=== PATIENT | male | born 1955 | race Caucasian/White ===

== ENCOUNTER → 2024-06-17 08:57 | Outpatient (CLI) | payer OTHER, SELFPAY ==
[2024-06-17 10:11] LABS: Add Manual Diff / Slide Review NO; Basophils Absolute Auto 100 /uL (0-100); Basophils Percent Auto 1.1 % (0-2); Eosinophils Absolute Auto 200 /uL (0-450); Eosinophils Percent Auto 2.6 % (2-4); Hematocrit 45.2 % (41-53); Hemoglobin 15.6 g/dL (13.5-17.5); Lymphocytes Absolute Auto 2000 /uL (1100-4500); Mean Corpuscular HGB Conc 34.6 % (30-36); Mean Corpuscular Hemoglobin 31.5 PG (26-34); Mean Corpuscular Volume 90.9 fL (80-100); Monocytes Absolute Auto 600 /uL (0-900); Monocytes Percent Auto 7.4 % (3-14); Neutrophils Absolute Auto 5100 /uL (1500-7000); Neutrophils Percent Auto 63.9 % (50-75); Platelet Count 273 X10^3/uL (150-400); Red Blood Cell Count 4.98 X10^6/uL (4.5-5.9); Red Cell Distribution Width 13.1 % (11.6-14.8)
[2024-06-17 11:51] LABS: Alanine Aminotransferase 21 IU/L (<50); Albumin 4.2 g/dL (3.5-5.0); Albumin Globulin Ratio 1.6 (1.0-2.8); Alkaline Phosphatase 65 U/L (38-126); Aspartate Aminotransferase 22 IU/L (17-59); BUN Creatinine Ratio 17.2 (6-22); Blood Urea Nitrogen 16 mg/dL (9-20); Calcium 9.5 mg/dL (8.4-10.2); Carbon Dioxide 23 mmol/L (22-32); Chloride 108 mmol/L (98-107); Cholesterol 230 mg/dL (140-199); Estimated Glomerular Filt Rate > 60 mL/min (>60); Globulin 2.7 g/dL (1.7-4.1); Glucose 98 mg/dL (80-110); HDL Cholesterol 45 mg/dL (40-60); HEMOLYSIS < 15 (0-50); LDL Cholesterol Calculated 164 mg/dL (<100); Potassium 4.2 mmol/L (3.4-5.1); Sodium 138 mmol/L (137-145); Total Protein 6.9 g/dL (6.3-8.2); Triglycerides 107 mg/dL (35-150)
[2024-06-17 12:21] LABS: Prostate Specific Antigen Scrn 4.76 ng/mL (0.1-4.0)
== END ==
PROVIDERS: PCP Family Medicine; Referring Provider Family Medicine; Visit Provider Family Medicine
DX: Z13.9 Encounter for screening, unspecified (principal); Z12.5 Encounter for screening for malignant neoplasm of prostate; Z80.42 Family history of malignant neoplasm of prostate
CPT/HCPCS: 36415; 80053; 80061; 85025; G0103

== ENCOUNTER → 2024-07-20 15:56 | Outpatient (CLI) | payer OTHER, SELFPAY ==
--- NOTE | 2024-07-20 15:57 | DI.ECHO.S_ITS ---
[facility] : : [address] : : [place] : : [id number] : : Phone: [phone] Echocardiogram Report + + :Name: MARY GUTIERREZ Study Date: 07/20/2024 Height: 76 in : :[facility] ReadingLocation: Weight: 250 lb : : Gender: Male BSA: 2.4 m2 : :: 1955 Age: 69 yrs BP: 203/107 mmHg: :Reason For Study: HEART MURMUR : :Ordering Physician: JOE, : :SHELIA Carney Performed By: Daljit Keller : :Referring: SHELIA DIAZ : + + Interpretation Summary 1) Mildly increased left ventricular thickness (concentric) with normal size, normal wall motion, and normal systolic function (EF 55-60%). 2) Upper normal right ventricular size with normal function. 3) There is mild aortic stenosis (valve area 1.6cm2, mean gradient 26mmHg, severity ratio 0.36). 4) There is mild to moderate aortic regurgitation. 5) The ascending aorta is mild-moderately enlarged at 4.5cm. 6) Hypertension present during the study (BP 203/107mmHg). 7) No prior Echo available for comparison. Procedure: A two-dimensional transthoracic echocardiogram with color flow and Doppler was performed. The study quality was technically adequate. There is no prior echocardiogram noted for this patient. The heart rate ranged between 56-73 bpm during the study. Left Ventricle: The left ventricle is normal in size. Left ventricular wall thickness is mildly increased. The ejection fraction is estimated to be 55- 60%. Left ventricular systolic function appears normal without focal wall motion abnormalities. Right Ventricle: The right ventricle is at the upper limits of normal in size. The right ventricular systolic function is normal. Atria: The left atrium is moderately dilated. Right atrial size is normal. The interatrial septum grossly appears intact with no obvious evidence for an atrial septal defect. Mitral Valve: The mitral valve is normal. There is no mitral valve stenosis. There is mild mitral regurgitation. Aortic Valve: The aortic valve is moderately calcified. There is mild aortic stenosis. The peak aortic velocity is 3.17 m/sec. The aortic valve mean gradient is 26.2 mmHg. The calculated aortic valve area is 1.6 cm2. There is mild to moderate aortic regurgitation. Tricuspid Valve: The tricuspid valve is normal. There is no tricuspid stenosis. There is mild tricuspid regurgitation. Pulmonary artery pressures cannot be estimated because of the lack of a measurable TR jet velocity. Pulmonic Valve: The pulmonic valve is not well visualized. There is no pulmonic valvular stenosis. There is no pulmonic valvular regurgitation. Great Vessels: The aortic root is mildly dilated. The ascending aorta is mild-moderately enlarged. The inferior vena cava was not visualized. Pericardium/ Pleura There is no pericardial effusion. There is no pleural effusion. MMode/2D Measurements & Calculations LVIDd: 5.8 cm LVOT diam: 2.4 cm LVIDs: 3.7 cm Ao root diam: 4.0 cm FS: 36.9 % asc Aorta Diam: 4.5 cm IVSd: 1.3 cm LVPWd: 1.3 cm LV strauss. diameter/BSA (cm/m^2): 2.4 LV sys. diameter/BSA (cm/m^2): 1.5 LA A2 area: 23.7 cm2 RA long axis: 5.5 cm LA A4 area: 24.9 cm2 RA area: 17.9 cm2 LA length (vol): 5.9 cm RA vol: 49.5 ml LA vol: 84.4 ml RA : 20.3 ml/m2 LA vol index: 34.6 ml/m2 RVD1 (basal): 4.0 cm RVD2 (mid): 3.6 cm TAPSE: 2.7 cm Doppler Measurements & Calculations Ao V2 max: 317.1 cm/sec LVOT Max Isak: 107.7 cm/sec Ao V2 mean: 245.0 cm/sec LV V1 max P.6 mmHg Ao max P.2 mmHg LV V1 VTI: 26.8 cm Ao mean P.2 mmHg GEOVANY(I,D): 1.6 cm2 Ao V2 VTI: 74.6 cm GEOVANY(V,D): 1.5 cm2 sev ratio: 0.36 GEOVANY indexed to BSA (cm^2/m^2): 0.65 MV E max isak: 48.5 cm/sec TR max isak: 267.6 cm/sec MV A max isak: 72.1 cm/sec TR max P.6 mmHg MV E/A: 0.67 PA V2 max: 120.1 cm/sec Med Peak E' Isak: 4.1 cm/sec PA V2 mean: 80.8 cm/sec E/E' med: 11.9 PA mean P.9 mmHg Lat Peak E' Isak: 6.5 cm/sec PA pr(Accel): 37.9 mmHg E/E' lat: 7.4 E/e' average: 9.7 MV dec time: 0.25 sec SV(OT): 118.6 ml Reading Physician:12:10 PM
== END ==
LOC: ECHO 15:56
PROVIDERS: PCP Family Medicine; Referring Provider Family Medicine; Visit Provider Family Medicine
DX: I08.3 Combined rheumatic disorders of mitral, aortic and tricuspid valves (principal); R01.1 Cardiac murmur, unspecified; I77.810 Thoracic aortic ectasia; I77.89 Other specified disorders of arteries and arterioles
CPT/HCPCS: 93306

== ENCOUNTER 2024-10-14 09:31 | Day surgery (SDC) | payer OTHER, SELFPAY ==
--- NOTE | 2024-10-14 | PATH_ITS ---
[facility] Accession Number: [id number] No. of containers..02 Tissue . 01 Material submitted: . PART A: colon - TRANSVERSE COLON POLYPS X2 PART B: rectum - RECTAL POLYP . 01 Diagnosis: A. TRANSVERSE COLON, POLYPECTOMY (X2): Inflammatory polyp and separate fragment of colonic mucosa with no significant diagnostic abnormality. Negative for active, chronic, or microscopic colitis. Negative for dysplasia or malignancy. Additional deeper levels were examined. - B. RECTUM, POLYPECTOMY: Tubular adenoma. [facility] 10/19/2024 1121 Local . 01 Electronically signed: . Maryann Tsang MD, Pathologist NPI- [id number] . 01 Gross description: . Part A: TRANSVERSE COLON POLYPS X2: Received in formalin are 2 fragment(s) of zhang, soft tissue measuring 0.5 x 0.5 x 0.5 cm to 1.0 x 0.6 x 0.4 cm submitted entirely in 1 cassette(s) Part B: RECTAL POLYP: Received in formalin are 2 fragment(s) of zhang, soft tissue measuring 0.3 x 0.3 x 0.3 cm to 0.6 x 0.5 x 0.4 cm submitted entirely in 1 cassette(s) /ZULEYMA 10/15/20241953 Local . 01 Pathologist provided ICD-10: Z12.11 . 01 CPT . 061126, 316855 Specimen Comment: A courtesy copy of this report has been sent to [phone] Performed at: [address] [address], [place], [place] [id number] MD Jose Ramon Pemberton MD Phone: [phone]
[2024-10-14 09:44] VITALS: BP 174/98; PULSE 86; RESP 16; TEMP 36.5; O2SAT 96
--- NOTE | 2024-10-14 09:51 | PM.HP.1 ---
History of Present Illness History of Present Illness Date Patient Seen: 10/14/24 Time Patient Seen: 09:51 Chief complaint: SDC Narrative: Herson is a 69-year-old man here for colonoscopy. He has had 1 over 10 years ago and may have had a small polyp removed. No family history of colon cancer. [facility] Medical History (Updated 10/14/24 @ 09:51 by Camden Walker MD) Fractures (~1972) Hepatitis (~1975) Hearing loss Gastric ulcer Onychomycosis LOKI (obstructive sleep apnea) (~2014) Heart murmur Family history of prostate cancer Psoriasis (~2013) Arrhythmia (~2017) Surgical History (Updated 06/28/24 @ 20:44 by Mary Kate Chandra) Anesthesia History of ankle surgery (~1972) Family History (Updated 06/28/24 @ 20:46 by Mary Kate Chandra) Father Cancer Mother Cancer Brother Atrial fibrillation Brother Atrial fibrillation Sister Cancer Meds Home Medications and Allergies Home Medications Medication Instructions Recorded Confirmed Type atorvastatin 20 mg tablet 20 mg PO BEDTIME #30 tabs 09/13/24 10/14/24 Rx losartan 25 mg tablet 25 mg PO DAILY #30 tabs 09/13/24 10/14/24 Rx Allergies Allergy/AdvReac Type Severity Reaction Status Date / Time No Known Drug Allergies Allergy Verified 10/14/24 09:42 Exam Const General: No acute distress Assessment & Plan Assessment and plan (1) Colon cancer screening: Status: Acute Plan Colonoscopy Time-Based Coding :: [TOTAL MINUTES] spent with patient and on the chart (including review of chart, obtaining history, exam, reviewing outside data, placing orders, documenting exam and treatment plan, and counseling patient) on [DATE].
--- NOTE | 2024-10-14 10:48 | PM.OP.COLON ---
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 The patient was connected to monitoring devices. A time-out was performed. Sedation was administered. Once the patient was adequately sedated, a digital rectal exam was performed and was normal. The scope was then inserted and advanced to the proximal transverse colon. The scope could not be advanced all the way to the cecum due to the length of the colon. We attempted manual abdominal pressure and repositioning well as a scope stiffener no success. The scope was gradually withdrawn. There were 2 5 mm polyps in the transverse colon removed with a cold snare and sent together. There was a 5 mm polyp in the mid rectum removed with a cold snare. The scope was retroflexed in the rectum. No other abnormalities were seen. The scope was straightened and removed. The patient was awakened and brought to recovery. Scope withdrawal time: Not applicable Sedation time: 45 minutes EBL: 2 mL Findings: 2 5 mm transverse colon polyps and 1 5 mm rectal polyp Post-procedure Disposition: PACU
[2024-10-14 10:56] VITALS: BP 100/58; PULSE 74; RESP 14; TEMP 36.6; O2SAT 91
[2024-10-14 11:01] VITALS: BP 98/56; PULSE 73; RESP 11; O2SAT 93
[2024-10-14 11:09] VITALS: BP 100/65; PULSE 73; RESP 12; TEMP 36.3; O2SAT 95
== END 2024-10-14 11:22 | disposition home or self-care (01) ==
PROVIDERS: PCP Family Medicine; Referring Provider Surgery; Visit Provider Surgery
PROC: 0DJD8ZZ Inspection of Lower Intestinal Tract, Via Natural or Artificial Opening Endoscopic (ICD-10-PCS; CPT 45378; principal; 2024-10-14 10:30)
DX: Z12.11 Encounter for screening for malignant neoplasm of colon (principal); K51.40 Inflammatory polyps of colon without complications; D12.8 Benign neoplasm of rectum
CPT/HCPCS: 45385; J2704

== ENCOUNTER → 2024-10-29 10:37 | Outpatient (CLI) | payer OTHER, SELFPAY ==
--- NOTE | 2024-10-29 10:39 | DI.RAD.S_ITS ---
PROCEDURE: FL BARIUM ENEMA INDICATIONS: incomplete colonoscopy, malignant neoplasm of colon COMPARISON: None. FINDINGS: KUB: Preprocedural club waiter/waitress film demonstrates a normal bowel gas pattern. No suspicious abdominal calcifications. Visualized solid organ contours appear normal in size. No suspicious bony lesions. Colon: There is adequate opacification of the entire colon. No strictures or extrinsic mass effects are identified. No colonic fistulae or perforations. Colon caliber appears normal. Three small approximately 2-3 mm mucosal ulcerations are noted at the splenic flexure. There is a diverticulum at the proximal transverse colon and several diverticula along the descending and sigmoid colon. There may be a small polyp measuring approximately 6 mm at the distal ascending colon. IMPRESSION: 1. One small 6 mm polyp is noted in the distal ascending colon. 2. Three small ulcerations in the splenic flexure. 3. Diverticulosis involving the transverse and especially the sigmoid colon. Dictated by: Jose Ramon Rodarte M.D. on 10/29/2024 at 14:12 Approved by: Jose Ramon Rodarte M.D. on 10/29/2024 at 14:41
== END ==
PROVIDERS: PCP Family Medicine; Referring Provider Surgery; Visit Provider Surgery
DX: Z12.11 Encounter for screening for malignant neoplasm of colon (principal); K57.30 Diverticulosis of large intestine without perforation or abscess without bleeding; K63.3 Ulcer of intestine; K63.5 Polyp of colon
CPT/HCPCS: 74270

== ENCOUNTER → 2024-12-22 09:33 | Outpatient (CLI) | payer MEDICARE, OTHER, SELFPAY | LOC: CAR 09:34 | PROVIDERS: PCP Family Medicine; Referring Provider Family Medicine; Visit Provider Family Medicine | DX: R01.1 Cardiac murmur, unspecified (principal); I49.9 Cardiac arrhythmia, unspecified | CPT/HCPCS: 93246; 93798 ==

== ENCOUNTER → 2025-03-07 13:52 | Outpatient (CLI) | payer MEDICARE, OTHER, SELFPAY ==
[2025-03-07 15:12] LABS: Prostate Specific Antigen 2.57 ng/mL (0.10-4.00)
== END ==
LOC: LAB 13:52
PROVIDERS: PCP Family Medicine; Referring Provider Urology; Visit Provider Urology
DX: R97.20 Elevated prostate specific antigen [PSA] (principal)
CPT/HCPCS: 36415; 84153

== ENCOUNTER 2025-03-16 12:38 | Emergency (ER) | payer MEDICARE, OTHER, SELFPAY ==
[2025-03-16] VITALS (7 sets, daily range): BP systolic 128–174; BP diastolic 77–119; PULSE 68–74; RESP 12–20; TEMP 36.6; O2SAT 92–100; BMI 32.2
--- NOTE | 2025-03-16 12:45 | DI.RAD.S_ITS ---
PROCEDURE: XR CHEST 1V INDICATIONS: chest pain TECHNIQUE: One view of the chest was acquired. COMPARISON: None. FINDINGS: Surgical changes and devices: None. Lungs and pleura: Ill-defined airspace opacity in left infrahilar region is seen concerning for left lower lobe infiltrate. Right lung is clear. No pleural effusions or pneumothorax. Mediastinum: Mediastinal contours appear normal. Heart size is enlarged. Bones and chest wall: No suspicious bony lesions. Overlying soft tissues appear unremarkable. IMPRESSION: Suggestion of left lower lobe infiltrate. Clinical correlation and follow-up is recommended. No pleural effusion or pneumothorax. Dictated by: Iker Del Angel M.D. on 03/16/2025 at 13:42 Approved by: Iker Del Angel M.D. on 03/16/2025 at 13:43
--- NOTE | 2025-03-16 12:52 | EKG_ITS ---
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
[2025-03-16] MEDS: ASPIRIN 81 MG CHEW TAB 324 MG PO (12:56)
[2025-03-16 13:00] LABS: Add Manual Diff / Slide Review NO; Basophils Absolute Auto 100 /uL (0-100); Eosinophils Absolute Auto 200 /uL (0-450); Eosinophils Percent Auto 1.6 % (2-4); Hematocrit 46.5 % (41-53); Hemoglobin 15.6 g/dL (13.5-17.5); Lymphocytes Absolute Auto 2100 /uL (1100-4500); Lymphocytes Percent Auto 17.7 % (25-40); Mean Corpuscular HGB Conc 33.5 % (30-36); Mean Corpuscular Hemoglobin 30.4 PG (26-34); Mean Corpuscular Volume 90.6 fL (80-100); Monocytes Absolute Auto 1400 /uL (0-900); Monocytes Percent Auto 11.5 % (3-14); Neutrophils Absolute Auto 8200 /uL (1500-7000); Neutrophils Percent Auto 68.2 % (50-75); Platelet Count 261 X10^3/uL (150-400); Red Blood Cell Count 5.13 X10^6/uL (4.5-5.9); Red Cell Distribution Width 13.1 % (11.6-14.8)
[2025-03-16 13:06] LABS: INR 1.1 (0.9-1.3); Prothrombin Time 12.3 SECONDS (9.4-12.5)
[2025-03-16 13:08] LABS: PTT Partial Thromboplastin Tim 38 SECONDS (25.1-36.5)
[2025-03-16 13:11] LABS: Alanine Aminotransferase 27 IU/L (<50); Albumin 4.3 g/dL (3.5-5.0); Albumin Globulin Ratio 1.3 (1.0-2.8); Alkaline Phosphatase 63 U/L (38-126); Aspartate Aminotransferase 27 IU/L (17-59); BUN Creatinine Ratio 16.3 (6-22); Bilirubin Total 1.5 mg/dL (0.2-1.3); Blood Urea Nitrogen 17 mg/dL (9-20); Calcium 9.3 mg/dL (8.4-10.2); Carbon Dioxide 24 mmol/L (22-32); Chloride 104 mmol/L (98-107); Creatine Kinase 57 U/L (55-170); Estimated Glomerular Filt Rate > 60 mL/min (>60); Globulin 3.2 g/dL (1.7-4.1); Glucose 103 mg/dL (70-99); HEMOLYSIS < 15 (0-50); Lipase 62 U/L (23-300); Potassium 3.8 mmol/L (3.4-5.1); Sodium 138 mmol/L (137-145); Total Protein 7.5 g/dL (6.3-8.2)
[2025-03-16 13:22] LABS: NT-proBNP (BNP-Adult 18+) 798 pg/mL (<125); Troponin I 0.032 ng/mL (0.01-0.034)
--- NOTE | 2025-03-16 13:29 | ED.CHESTPAIN ---
HPI - Chest Pain General Chief Complaint: Chest Pain Stated Complaint: Check for chest pressure sent from Dr. Richmond Time Seen by Provider: 03/16/25 12:52 Source: patient Mode of arrival: Ambulatory History of Present Illness HPI narrative: Patient is a male with a recent history of stent placement (four stents placed on Friday at [facility]) who presents with mild chest pressure localized to the upper left side, rated as 3/10 in intensity. The chest pressure began last evening and has remained stable since onset. The patient reports no radiation of pain to the jaw, back, or other areas, and no positional changes affecting the symptoms. He denies any swelling in the legs, new medications, or complications during the stent procedure. He has been recovering from a cold and suspects it may be bronchial in nature. Pertinent ROS: Denies shortness of breath, wheezing, cough, fever, chills, nausea, vomiting, or leg swelling. Reports mild chest pressure. Past Medical History: Recent stent placement, hyperlipidemia. Denies hypertension or diabetes. Medications: Aspirin, cholesterol medication, Plavix. Surgical History: Stent placement (planned procedure). Allergies: None mentioned. Related Data Home Medications Medication Instructions Recorded Confirmed aspirin 81 mg tablet,delayed 81 mg PO DAILY 03/16/25 03/16/25 release (Adult Low Dose Aspirin) clopidogrel 75 mg tablet 75 mg PO DAILY 03/16/25 03/16/25 Previous Rx's Medication Instructions Recorded losartan 25 mg tablet 25 mg PO DAILY #90 tabs 12/30/24 atorvastatin 20 mg tablet 20 mg PO BEDTIME #90 tabs 01/31/25 Allergies Allergy/AdvReac Type Severity Reaction Status Date / Time No Known Drug Allergies Allergy Verified 12/16/24 08:04 Review of Systems Review of Systems Narrative: Constitutional: recovering from a cold. Eyes: no visual changes. Ears/Nose/Throat: no nasal congestion or drainage. Respiratory: suspects bronchial symptoms related to recent cold, denies wheezing or shortness of breath. Cardiac: chest pressure rated 3/10, denies radiation of pain, denies positional changes, denies leg swelling. Gastrointestinal: umbilical hernia noted, longstanding, no associated symptoms. Skin: no laceration, no rash. Musculoskeletal: no extremity pain. Neurologic: no confusion. Psychiatric: no mood change. Other: other. Patient History Medical History Fractures (~1972) Hepatitis (~1975) Hearing loss Gastric ulcer Onychomycosis LOKI (obstructive sleep apnea) (~2014) Heart murmur Family history of prostate cancer Psoriasis (~2013) Arrhythmia (~2017) Surgical History Anesthesia History of ankle surgery (~1972) Family History Father Cancer Mother Cancer Brother Atrial fibrillation Brother Atrial fibrillation Sister Cancer Social History Smoking Status: Never smoker alcohol intake: current Smoking Status: Never smoker alcohol intake frequency: a few times a week Exam Narrative Exam Narrative: General: Well appearing, well nourished, alert, no acute distress. Skin: Good turgor, no rash, unusual bruising or prominent lesions. Head: Normocephalic, atraumatic. HEENT: Conjunctiva clear, EOM intact, PERRL, mucous membranes moist. Neck: Supple, normal ROM. Heart: Regular rate and rhythm, no murmur or gallop or rubs. Bilateral upper extremities warm and well-perfused with 2+ radial pulses. Lungs: Clear to auscultation bilaterally, no wheezing, rhonchi, or expiratory wheeze. Abdomen: Soft, non-distended, umbilical hernia noted without erythema or signs of poor blood flow. Back: Spine normal without deformity or tenderness, no CVA tenderness. Extremities: No deformities, no significant edema in bilateral lower extremities, peripheral pulses intact. Neurologic: CN 2-12 normal. Normal sensation and motor exam. Psychiatric: Oriented X3, normal mood and affect. Initial Vital Signs Initial Vital Signs: Vital Signs Temperature 98 F 03/16/25 12:40 Pulse Rate 73 03/16/25 12:40 Respiratory Rate 20 03/16/25 12:40 Blood Pressure 145/119 H 03/16/25 12:40 Pulse Oximetry 100 03/16/25 12:40 Oxygen Delivery Method Room Air 03/16/25 12:40 Course Orders Ordered: ED Orders 03/16/25 12:45 XR chest 1V Stat EKG-12 Lead Stat 03/16/25 12:53 Complete Blood Count AUTO DIFF Stat Comprehensive Metabolic Panel Stat Lipase Stat Magnesium Stat NT-proBNP (BNP-Adult 18+) Stat PTT Partial Thromboplastin Sean Stat Prothrombin Time INR Stat Troponin & CK Cardiac Panel Stat 03/16/25 13:00 Respiratory Panel (Film Array) Stat 03/16/25 15:16 Trop I [Troponin I] Stat Discontinued Medications Aspirin (Aspirin 81 Mg Chew Tab) 324 mg PO NOW ONE Stop: 03/16/25 12:46 Last Admin: 03/16/25 12:56 Dose: 324 mg Documented By: MASON Nitroglycerin (Nitroglycerin 0.4 Mg Sl Tab) 0.4 mg SL NOW ONE Stop: 03/16/25 16:42 Last Admin: 03/16/25 16:44 Dose: 0.4 mg Vital Signs Vital signs: Vital Signs - 8 hr 03/16/25 12:40 03/16/25 13:25 03/16/25 14:28 Temperature 98 F Pulse Rate 73 70 68 Respiratory Rate 20 12 15 Blood Pressure 145/119 H 174/92 H 150/78 H Pulse Oximetry 100 92 93 Oxygen Delivery Method Room Air Room Air 03/16/25 15:13 03/16/25 16:38 03/16/25 16:44 Temperature Pulse Rate 70 72 73 Respiratory Rate 16 16 Blood Pressure 129/79 144/78 H 143/79 H Pulse Oximetry 93 95 Oxygen Delivery Method MDM - Chest Pain Lab Data Lab results narrative: I reviewed patient's lab work which shows mild elevation in white count at 12 but otherwise no signs of significant anemia or thrombocytopenia electrolytes reassuring with no significant abnormalities -initial troponin 0.032, BNP is not significantly elevated we will do repeat on these given patient's high-risk nature of symptoms and medical history Patient's lipase is not significantly elevated and LFTs within normal limits 03/16/25 12:53 03/16/25 12:53 Labs: Lab Results 03/16/25 03/16/25 03/16/25 Range/Units 12:53 13:00 15:16 WBC 12.0 H (4.5-11.0) X10^3/uL RBC 5.13 (4.5-5.9) X10^6/uL Hgb 15.6 (13.5-17.5) g/dL Hct 46.5 (41-53) % MCV 90.6 (80-100) fL MCH 30.4 (26-34) PG MCHC 33.5 (30-36) % RDW 13.1 (11.6-14.8) % Plt Count 261 (150-400) X10^3/uL Neut % (Auto) 68.2 (50-75) % Lymph % (Auto) 17.7 L (25-40) % Wolfe % (Auto) 11.5 (3-14) % Eos % (Auto) 1.6 L (2-4) % Baso % (Auto) 1.0 (0-2) % Neut # (Auto) 8200 H (1185-7559) /uL Lymph # (Auto) 2100 (8390-4412) /uL Wolfe # (Auto) 1400 H (0-900) /uL Eos # (Auto) 200 (0-450) /uL Baso # (Auto) 100 (0-100) /uL PT 12.3 (9.4-12.5) SECONDS INR 1.1 (0.9-1.3) APTT 38 H (25.1-36.5) SECONDS Sodium 138 (137-145) mmol/L Potassium 3.8 (3.4-5.1) mmol/L Chloride 104 (98-107) mmol/L Carbon Dioxide 24 (22-32) mmol/L BUN 17 (9-20) mg/dL Creatinine 1.04 (0.66-1.25) mg/dL Estimated GFR > 60 (>60) mL/min BUN/Creatinine Ratio 16.3 (6-22) Glucose 103 H (70-99) mg/dL Calcium 9.3 (8.4-10.2) mg/dL Magnesium 2.0 (1.6-2.3) mg/dL Total Bilirubin 1.5 H (0.2-1.3) mg/dL AST 27 (17-59) IU/L ALT 27 (<50) IU/L Alkaline Phosphatase 63 (38-126) U/L Total Creatine Kinase 57 (55-170) U/L Troponin I 0.032 0.032 (0.01-0.034) ng/mL NT-Pro-B Natriuret Pep 798 H (<125) pg/mL Total Protein 7.5 (6.3-8.2) g/dL Albumin 4.3 (3.5-5.0) g/dL Globulin 3.2 (1.7-4.1) g/dL Albumin/Globulin Ratio 1.3 (1.0-2.8) Lipase 62 (23-300) U/L Chlamy pneumoniae PCR Not detected (Not Detect) Adenovirus (PCR) Not detected (Not Detect) B. pertussis DNA (PCR) Not detected (Not Detect) B.parapertussis DNA PCR Not detected (Not Detecte) Coronavirus OC43 (PCR) Not detected (Not Detect) Coronavirus HKU1 (PCR) Not detected (Not Detect) Coronavirus 229E (PCR) Not detected (Not Detect) SARS-CoV-2 (PCR) Not detected (Not Detecte) Coronavirus NL63 (PCR) Not detected (Not Detect) Human Metapneumovir PCR Not detected (Not Detect) Influenza Type A (PCR) Not detected (Not Detect) Influenza Type B (PCR) Not detected (Not Detect) M. pneumoniae (PCR) Not detected (Not Detect) Parainfluenza 1 (PCR) Not detected (Not Detect) Parainfluenza 2 (PCR) Not detected (Not Detect) Parainfluenza 3 (PCR) Not detected (Not Detect) Parainfluenza 4 (PCR) Not detected (Not Detect) RSV (PCR) Not detected (Not Detect) Entero/Rhino (PCR) Detected H (Not Detect) ECG Data Attestation: I personally reviewed and interpreted this ECG as follows: Interpretation: I reviewed patient's EKG that shows normal sinus rhythm with a rate of 74 CO interval is 202, QTC 408 patient has no significant ST segment elevations meeting STEMI criteria patient has ST segment laterally very mildly, waiting on records from outside hospital for comparison to previous [facility] Narrative Medical decision making narrative: INITIAL EVALUATION AND PLAN: - Differential diagnosis includes possible complications from recent stent placement, ongoing ischemia, or other cardiac issues. - Cardiac workup: - Chest X-ray. - EKG. - Troponin levels. - Cardiac BNP. - [id number] cardiac ultrasound to assess for fluid collection or other abnormalities. - Monitor for worsening chest pain or shortness of breath. - Consider contacting [facility] for further evaluation or follow-up based on findings. Differential diagnosis includes but is not limited to: complications from stent placement, ongoing ischemia, CO, ACS, coronary artery dissection, bronchial symptoms, or other cardiac abnormalities. -records were obtained from [facility] where his stents were placed fortunately no significant abnormalities from his previous EKG to today's EKG. Also reviewed patient's catheter report including multiple stent placement -consultation was obtained from Dr. Heller of this scheduled cardiology team who reviewed the patient's most recent imaging, cath report and EKGs, we discussed inpatient for outpatient treatment of his symptoms, he states that given reassuring EKG only mild symptoms and delta troponin that has been negative 2 times and consistent in onset of his chest pain greater than 12 hours ago unlikely to have new acute occlusion or dissection causing symptoms. Recommends outpatient follow up with job honer if able to ambulate without significant anginal symptom. -lower suspicion for dissection given no signs of mediastinal widening on x-ray and no signs of pulse deficit or neurological deficits, patient's pain does not extend to the back. -patient was able to ambulate without significant difficulty he had no chest pain shortness of breath and is overall feeling improved, we discussed the pros and cons versus inpatient and outpatient management at this time made wishes to proceed with outpatient management and he will call his job honer as soon as possible for expedited appointment. Return precautions were discussed and patient was discharged from the ED Discharge Plan Departure Patient Disposition: Home Clinical Impression: Chest pain Instructions: DI for Acute Coronary Syndrome, DI for Angina Activity Restrictions/Additional Instructions: Please return to the emergency department if you have worsening symptoms and wished to be re-evaluated today your EKG was reassuring as well as your lab work however as we discussed your high-risk given your recent stents and if you have worsening symptoms please return to the emergency department. Please call your job honer as soon as possible in order to discuss with them whether or not you need expedited follow up or new prescription for nitroglycerin. Please return to the ED for any questions or worsening symptoms Prescriptions: No Action aspirin [Adult Low Dose Aspirin] 81 mg tablet,delayed release (DR/EC) 81 mg PO DAILY Rx Instructions: Take 1 tablet (81mg total) by mouth daily. clopidogrel 75 mg tablet 75 mg PO DAILY Rx Instructions: Take 1 tablet (75mg total) by mouth daily. losartan 25 mg tablet 25 mg PO DAILY Qty: 90 3RF atorvastatin 20 mg tablet 20 mg PO BEDTIME Qty: 90 3RF Referrals: Sandy Hanson MD [Primary Care Provider] - Stand Alone Forms: Patient Portal/API/Survey
[2025-03-16 14:19] LABS: Adenovirus Not Detected (Not Detect); B. parapertussis Not Detected (Not Detecte); Bordetella pertussis Not Detected (Not Detect); Chlamydophila pneumoniae Not Detected (Not Detect); Coronavirus 229E Not Detected (Not Detect); Coronavirus HKU1 Not Detected (Not Detect); Coronavirus NL 63 Not Detected (Not Detect); Coronavirus OC43 Not Detected (Not Detect); Human Metapneumovirus Not Detected (Not Detect); Human Rhinovirus/Enterovirus Detected (Not Detect); Influenza A Not Detected (Not Detect); Influenza B Not Detected (Not Detect); Mycoplasma pneumoniae Not Detected (Not Detect); Parainfluenza Virus 1 Not Detected (Not Detect); Parainfluenza Virus 2 Not Detected (Not Detect); Parainfluenza Virus 3 Not Detected (Not Detect); Parainfluenza Virus 4 Not Detected (Not Detect); Respiratory Syncytial Virus Not Detected (Not Detect); SARS- CoV-2 Not Detected (Not Detecte)
[2025-03-16 15:52] LABS: Troponin I 0.032 ng/mL (0.01-0.034)
[2025-03-16] MEDS: NITROGLYCERIN 0.4 MG SL TAB SL (16:44)
--- NOTE | 2025-03-16 16:45 | PC.NURSE ---
chest pain is 2.5/10 prior to nitro SL.
--- NOTE | 2025-03-16 16:49 | PC.NURSE ---
pt states pain went down to 1/10 pain. does not feel pressure in his check any more. He ambulated independently around the ED once with a steady gait.
== END 2025-03-16 17:37 | disposition home or self-care (01) ==
PROVIDERS: Emergency Provider Emergency Medicine; PCP Family Medicine
DX: R07.9 Chest pain, unspecified (principal); Z79.01 Long term (current) use of anticoagulants; Z95.5 Presence of coronary angioplasty implant and graft
CPT/HCPCS: 36415; 71045; 80053; 82550; 83690; 83735; 83880; 84484; 85025; 85610; 85730; 87633; 93005; 93010; 99284

== ENCOUNTER → 2025-05-03 14:13 | Outpatient (CLI) | payer MEDICARE, OTHER, SELFPAY ==
--- NOTE | 2025-05-03 14:15 | DI.US.S_ITS ---
PROCEDURE: US CAROTID DOPPLER BI INDICATIONS: Cardiac arrhythmia, heart murmur TECHNIQUE: Color and pulse Doppler interrogation was performed of both carotid systems, with image documentation and velocity measurements. COMPARISON: None. FINDINGS: Stenosis calculations are based on SRU (Society of [employer] in Ultras[employer]) criteria. Right side: Brachial blood pressure: 157/89 mm Hg. Common carotid artery peak systolic velocity: 41 cm/sec. Internal carotid artery peak systolic velocity: 51 cm/sec. Internal carotid artery end diastolic velocity: 17 cm/sec. External carotid artery peak systolic velocity: 89 cm/sec. ICA/CCA peak systolic ratio: 1.1 . [place] scale imaging description: No significant calcifications Percent internal carotid artery stenosis: Normal Vertebral artery: Not assessed Left side: Brachial blood pressure: 150/87 mm Hg. Common carotid artery peak systolic velocity: 73 cm/sec. Internal carotid artery peak systolic velocity: 73 cm/sec. Internal carotid artery end diastolic velocity: 19 cm/sec. External carotid artery peak systolic velocity: 80 cm/sec. ICA/CCA peak systolic ratio: 1.0 . [place] scale imaging description: No significant calcifications Percent internal carotid artery stenosis: Normal . Vertebral artery: Not assessed IMPRESSION: 1. In the right carotid artery, there is normal stenosis based on peak systolic velocity criteria. 2. In the left carotid artery, there is normal stenosis based on peak systolic velocity criteria. 3. Vertebral arteries were not visualized. Approved by: Giovanna Ignacio M.D.,Ph.D. on 05/04/2025 at 12:09
== END ==
PROVIDERS: PCP Family Medicine; Referring Provider Family Medicine; Visit Provider Family Medicine
DX: I49.9 Cardiac arrhythmia, unspecified (principal); R01.1 Cardiac murmur, unspecified
CPT/HCPCS: 93880

== ENCOUNTER 2025-06-22 08:30 | Outpatient (RCR) | payer MEDICARE, OTHER, SELFPAY | END 2025-06-22 10:30 | LOC: CAR 08:30 | PROVIDERS: PCP Family Medicine; Referring Provider Family Medicine; Visit Provider Family Medicine | DX: Z95.5 Presence of coronary angioplasty implant and graft (principal) | CPT/HCPCS: 93798 ==

== ENCOUNTER → 2025-08-04 15:39 | Outpatient (CLI) | payer MEDICARE, OTHER, SELFPAY ==
--- NOTE | 2025-08-04 15:44 | DI.CT.S_ITS ---
PROCEDURE: CT CHEST WO CON INDICATIONS: Aneurysm TECHNIQUE: Noncontrast 5 mm thick sections acquired from the pulmonary apices to the posterior costophrenic angles. 1 mm lung window, 5 mm thick coronal and sagittal and 7 mm axial MIP reformats were then acquired. For radiation dose reduction, the following was used: automated exposure control, adjustment of mA and/or kV according to patient size. COMPARISON: None. FINDINGS: Image quality: Diagnostic. Lungs and Pleura: Central and peripheral airways are normal without bronchial wall thickening or bronchiectasis. Linear bilateral lower lobe septal thickening. Scattered small calcified nodules. No ground-glass opacities or consolidations. No pleural effusions or pleural calcifications. Lower Neck: No enlarged lymph nodes. Thyroid: Normal CT appearance. Axillae: No enlarged lymph nodes. Chest Wall: No suspicious chest wall lesions. Bones: No suspicious bone lesion. Mild degenerative changes in the spine. Thoracic Vessels: Mild enlargement of the ascending aorta at 4.4 cm AP diameter. Normal variant bovine arch anatomy. Trace aortic arch calcification. Descending thoracic aorta is normal caliber. Pulmonary arteries are normal caliber. Mediastinum and Trina: No enlarged lymph nodes. Heart: Heart size is normal. No pericardial effusion. Dense aortic valvular calcification. Moderate to heavy coronary artery calcification. Esophagus: No wall thickening. Small hiatal hernia. Upper Abdomen: Visualized upper abdomen solid organs and bowel loops appear normal. IMPRESSION: No significant change in mild aneurysmal dilatation of the ascending thoracic aorta. Coarse aortic valve calcification. Moderate to heavy coronary artery calcification. Dictated by: Elo Thayer M.D. on 08/05/2025 at 9:59 Approved by: Elo Thayer M.D. on 08/05/2025 at 10:07
== END ==
LOC: CT 15:42
PROVIDERS: PCP Family Medicine; Referring Provider Internal Medicine; Visit Provider Internal Medicine
DX: I71.21 Aneurysm of the ascending aorta, without rupture (principal); I35.8 Other nonrheumatic aortic valve disorders; I25.10 Atherosclerotic heart disease of native coronary artery without angina pectoris; K44.9 Diaphragmatic hernia without obstruction or gangrene
CPT/HCPCS: 71250

== ENCOUNTER → 2025-09-01 13:39 | Outpatient (CLI) | payer MEDICARE, OTHER, SELFPAY ==
--- NOTE | 2025-09-01 13:41 | DI.ECHO.S_ITS ---
[facility] +---------+ [facility] : : [id number] : : [place] : : [id number] : : Phone: [phone] Echocardiogram Report + + :Name: MARY GUTIERREZ Study Date: 09/01/2025 Height: 76 in : :[facility] ReadingLocation: Weight: 260 lb : : Gender: Male BSA: 2.5 m2 : :: 1955 Age: 70 yrs BP: 143/92 mmHg: :Reason For Study: CHEST PAIN, : :Ordering Physician: LENNIE DEL ANGEL Performed By: Jennifer Etienne : :Referring: LENNIE DEL ANGEL : + + Interpretation Summary - Left ventricular contractility is normal. Estimated ejection fraction is greater than 60% with no segmental wall motion abnormalities. Mild concentric LVH. Indeterminate diastolic function. - The right ventricular contractility is normal. - Mild left atrial enlargement. The right ventricle is also borderline enlarged. The right atrium and left ventricle are of normal size. - Trace to mild mitral regurgitation. - Moderate to severe aortic valvular stenosis with peak velocity of 3.8 m/s. Mean gradient is 31 mmHg. Dimensionless index is 0.31. Mild aortic insufficiency. - Trace to mild tricuspid regurgitation with estimated pulmonary systolic artery pressures of 31 mmHg. - Mild pulmonic insufficiency. - No obvious intracardiac shunts. - No obvious intracardiac masses nor thrombi. - No hemodynamically significant pericardial effusion. - Low right-sided filling pressures. - Dilated aortic root and ascending thoracic aorta without obvious dissection. Conclusion: Normal biventricular systolic function with moderate to severe aortic valvular stenosis. Thoracic aortic aneurysm is noted. When compared with previous echocardiogram, there is progression of the aortic valvular stenosis. Procedure: A two-dimensional transthoracic echocardiogram with color flow and Doppler was performed. The study quality was technically adequate. Comparison is made with the echocardiogram of 07/20/2024. The patient was in sinus bradycardia with heart rates between 50-60 bpm during the exam. Left Ventricle: There is mild concentric left ventricular hypertrophy. The left ventricle is normal in size. The ejection fraction is estimated to be 60- 65%. Grade I diastolic dysfunction with normal left atrial pressure. Right Ventricle: The right ventricle is borderline dilated. The right ventricular systolic function is normal. Atria: The left atrium is mildly dilated. Right atrial size is normal. There is no Doppler evidence for an interatrial shunt. Mitral Valve: The mitral valve leaflets appear to open well. There is mild mitral regurgitation. Aortic Valve: The aortic valve is trileaflet. The aortic valve is moderately calcified. There is moderate to severe aortic stenosis. The peak aortic velocity is 3.8 m/sec. The aortic valve mean gradient is 31 mmHg. The calculated aortic valve area is 1.2 cm2. There is mild aortic regurgitation. Tricuspid Valve: The tricuspid valve leaflets are thin and pliable. There is mild tricuspid regurgitation. The right ventricular systolic pressure is estimated to be at least 31 mmHg based on an estimated right atrial pressure of 3 mm Hg. Pulmonic Valve: The pulmonic valve leaflets are thin and pliable; valve motion is normal. There is mild pulmonic regurgitation. Great Vessels: The aortic root is mildly dilated. The ascending aorta is mild-moderately enlarged. The IVC is of normal diameter and collapses greater than 50% with a sniff. This suggests a low right atrial pressure of 3 mm Hg. Pericardium/ Pleura There is no pericardial effusion. There is no pleural effusion. MMode/2D Measurements & Calculations LVIDd: 5.5 cm LVOT diam: 2.4 cm LVIDs: 3.2 cm Ao root diam: 3.9 cm FS: 41.7 % asc Aorta Diam: 4.2 cm IVSd: 1.1 cm Ao Arch Diam (Prox Trans): 3.3 cm LVPWd: 1.1 cm LV strauss. diameter/BSA (cm/m^2): 2.2 LV sys. diameter/BSA (cm/m^2): 1.3 LA A2 area: 25.2 cm2 RA long axis: 5.8 cm LA A4 area: 26.8 cm2 RA area: 21.7 cm2 LA length (vol): 6.1 cm RA vol: 69.1 ml LA vol: 94.3 ml RA : 27.9 ml/m2 LA vol index: 38.1 ml/m2 IVC diam: 1.7 cm RVD1 (basal): 4.1 cm RVD2 (mid): 3.5 cm TAPSE: 2.2 cm Doppler Measurements & Calculations Ao V2 max: 380.2 cm/sec LVOT Max Isak: 104.0 cm/sec Ao V2 mean: 258.5 cm/sec LV V1 max P.4 mmHg Ao max P.8 mmHg LV V1 VTI: 26.0 cm Ao mean P.2 mmHg GEOVANY(I,D): 1.4 cm2 Ao V2 VTI: 84.7 cm GEOVANY(V,D): 1.2 cm2 sev ratio: 0.31 GEOVANY indexed to BSA (cm^2/m^2): 0.56 AI P1/2t: 720.7 msec AI dec slope: 164.7 cm/sec2 MV E max isak: 73.1 cm/sec TR max isak: 264.8 cm/sec MV A max isak: 66.6 cm/sec TR max P.0 mmHg MV E/A: 1.1 PA V2 max: 118.9 cm/sec Med Peak E' Iska: 5.4 cm/sec PA V2 mean: 80.1 cm/sec E/E' med: 13.7 PA mean P.9 mmHg Lat Peak E' Isak: 7.9 cm/sec PA pr(Accel): 38.5 mmHg E/E' lat: 9.3 E/e' average: 11.5 MV dec time: 0.29 sec SV(LVOT): 117.4 ml Reading Physician:LIN
--- NOTE | 2025-09-01 13:41 | DI.NM.S_ITS ---
PROCEDURE: NM EXERCISE TREADMILL NON NUC COMPARISON: None. INDICATIONS: Chest pain. FINDINGS: Rest ECG sinus rhythm 54 bpm. Jarrell protocol 6:47, max heart rate 146 bpm (97% peak predicted), peak blood pressure 220/100, 7.0 METS, ZENIA +3%. Exercise ECG sinus tachycardia, no ST changes or arrhythmia. Frequent PVCS noted. The patient did not report chest pain. IMPRESSION: Low risk study. No evidence of exercise induced ischemia. Frequent PVCs noted. Hypertensive response. Normal heart rate response. Fair exercise capacity. Dictated by: Rachel Dsouza D.O. on 09/01/2025 at 16:18 Approved by: Rachel Dsouza D.O. on 09/01/2025 at 16:22
== END ==
PROVIDERS: PCP Family Medicine; Referring Provider Internal Medicine; Visit Provider Internal Medicine
DX: I25.119 Atherosclerotic heart disease of native coronary artery with unspecified angina pectoris (principal); I49.3 Ventricular premature depolarization; R03.0 Elevated blood-pressure reading, without diagnosis of hypertension; R00.0 Tachycardia, unspecified; I08.3 Combined rheumatic disorders of mitral, aortic and tricuspid valves; I77.89 Other specified disorders of arteries and arterioles; I77.810 Thoracic aortic ectasia
CPT/HCPCS: 93017; 93306

== ENCOUNTER → 2025-09-05 07:30 | Outpatient (CLI) | payer MEDICARE, OTHER, SELFPAY ==
[2025-09-05 07:54] LABS: Add Manual Diff / Slide Review NO; Hematocrit 45.5 % (41-53); Hemoglobin 15.5 g/dL (13.5-17.5); Lymphocytes Absolute Auto 2100 /uL (1100-4500); Mean Corpuscular HGB Conc 34.1 % (30-36); Mean Corpuscular Hemoglobin 30.7 PG (26-34); Mean Corpuscular Volume 90.1 fL (80-100); Platelet Count 261 X10^3/uL (150-400)
[2025-09-05 08:11] LABS: Alanine Aminotransferase 34 IU/L (<50); Albumin 4.2 g/dL (3.5-5.0); Albumin Globulin Ratio 1.4 (1.0-2.8); Alkaline Phosphatase 62 U/L (38-126); Blood Urea Nitrogen 21 mg/dL (9-20); Calcium 9.7 mg/dL (8.4-10.2); Carbon Dioxide 25 mmol/L (22-32); Chloride 106 mmol/L (98-107); Cholesterol 154 mg/dL (140-199); Estimated Glomerular Filt Rate > 60 mL/min (>60); Globulin 3.0 g/dL (1.7-4.1); Glucose 104 mg/dL (70-99); HDL Cholesterol 52 mg/dL (40-60); HEMOLYSIS < 15 (0-50); Potassium 3.9 mmol/L (3.4-5.1); Sodium 139 mmol/L (137-145); Total Protein 7.2 g/dL (6.3-8.2); Triglycerides 103 mg/dL (35-150)
[2025-09-05 08:47] LABS: Prostate Specific Antigen 4.22 ng/mL (0.10-4.00)
== END ==
PROVIDERS: PCP Family Medicine; Referring Provider Urology; Visit Provider Urology
DX: R97.20 Elevated prostate specific antigen [PSA] (principal); I25.10 Atherosclerotic heart disease of native coronary artery without angina pectoris; I10 Essential (primary) hypertension
CPT/HCPCS: 36415; 80053; 80061; 84153; 85025

== ENCOUNTER → 2025-09-25 07:02 | Outpatient (CLI) | payer MEDICARE, OTHER, SELFPAY ==
--- NOTE | 2025-09-25 07:05 | DI.MRI.S_ITS ---
PROCEDURE: MR PELVIC PROSTATE PROTOCOL INDICATIONS: 70 y/o M w/ elevated PSA, please eval TECHNIQUE: Coronal HASTE, axial T1 FSE with fat saturation, 3-plane nonbreath-hold T2 FSE. After the administration of contrast, dynamic axial, delayed axial and coronal VIBE or 2-D FLASH with fat saturation through the pelvis. Diffusion weighted imaging and ADC was performed. COMPARISON: None. FINDINGS: Image quality: Diffusion weighted and dynamic contrast enhanced images are diagnostic. Prostate: Gland size is 5.3 x 4.4 x 5.8 cm; ellipsoid gland volume is 70.3 mL. PSA density is 0.0597 Transitional zone heterogenous nodules are present, either well encapsulated or mostly encapsulated, compatible with PI-RADS 1 or 2 likely BPH nodules. At the right apex posterior peripheral zone, there is a 1 x 0.8 x 0.8 cm lesion (5/21, 7/12). DWI score 3 (25/19). DCE positive. T2 score 4. PI-RADS 4. The seminal vesicles are clear. There is no measurable extracapsular disease Genitourinary system: Mildly trabeculated urinary bladder usually due to chronic obstruction Bowel and peritoneum: Moderate to the large colonic fecal loading partially seen. No bowel obstruction. No drainable ascites Nodes and vessels: No enlarged lymph nodes seen by size criteria in the pelvis. No aneurysmal artery identified. Soft tissues: Small fat containing left inguinal hernia. Bones: No aggressive appearing pelvic osseous enhancement. Suspected bilateral mild trochanteric bursitis. IMPRESSION: PI-RADS 4 lesion is seen in the right apex peripheral zone. No extracapsular disease or seminal vesicle involvement identified by MRI No pelvic lymphadenopathy by size criteria. No aggressive osseous abnormality. Dictated by: Georges Farah M.D. on 09/25/2025 at 17:48 Approved by: Georges Farah M.D. on 09/25/2025 at 17:53
== END ==
PROVIDERS: PCP Family Medicine; Referring Provider Family Medicine; Visit Provider Urology
DX: N42.9 Disorder of prostate, unspecified (principal); R97.20 Elevated prostate specific antigen [PSA]; N32.89 Other specified disorders of bladder; K40.90 Unilateral inguinal hernia, without obstruction or gangrene, not specified as recurrent
CPT/HCPCS: 72197; A9579